=== PATIENT | female | born 1945 | race Two or more races ===

== ENCOUNTER 2024-10-23 10:32 | Inpatient (IN) | payer OTHER ==
[~2024-10-23] VITALS: Ht 154.9 cm; Wt 55.8 kg
[2024-10-23] MEDS ORDERED: FENOFIBRATE50 MG PO (11:58)
[2024-10-23] MEDS ORDERED: JARDIANCE10 MG PO (11:58)
[2024-10-23] MEDS ORDERED: RESTORIL30 M1 PO (11:58)
[2024-10-23] MEDS ORDERED: LIPITOR20 MG PO (11:58)
[2024-10-23 11:59] VITALS: BP 134/70
[2024-10-29] MEDS ORDERED: CEFAZOLIN SODIUM 1,000 MG VIAL ONE (07:57)
[2024-10-29] MEDS ORDERED: TRANEXAMIC ACID 100MG/1ML (1000MG) AMPUL IV ONE (07:58)
[2024-10-29] MEDS ORDERED: VANCOMYCIN HCL 1,000 MG VIAL ONE (10:18)
[2024-10-29] MEDS ORDERED: KETOROLAC TROMETHAMINE 60 MG VIAL IM ONE (10:18)
[2024-10-29] MEDS ORDERED: LIDOCAINE HCL 1%/EPINEPHRINE 20ML VIAL IJ ONE (10:18)
[2024-10-29] MEDS ORDERED: BUPIVACAINE HCL/MPF 0.5% 30ML VIAL ONE (10:18)
[2024-10-29] MEDS ORDERED: OxyCODONE HCL 5 MG TABLET (ROXICODONE) PO PRN (10:30)
[2024-10-29] MEDS ORDERED: ONDANSETRON HCL 2 MG/ML VIAL IV PRN (10:30)
[2024-10-29] MEDS ORDERED: MORPHINE SULFATE 4 MG/ML CARTRIDGE IV SCH (12:00)
[2024-10-29] MEDS ORDERED: CEFAZOLIN SODIUM 1,000 MG VIAL IV SCH (12:00)
[2024-10-29] MEDS ORDERED: MORPHINE SULFATE 4 MG/ML CARTRIDGE IV ONE (12:18)
[2024-10-29] MEDS ORDERED: ACETAMINOPHEN 325 MG TABLET PO PRN (12:30)
[2024-10-29] MEDS ORDERED: ORPHENADRINE CITRATE 100 MG TABLET PO SCH (21:00)
[2024-10-29] MEDS ORDERED: GABAPENTIN 100 MG CAPSULE PO SCH (21:00)
[2024-10-29] MEDS ORDERED: DEXTROSE 50 % IN WATER 0.5 G/ML VIAL IV PRN (22:45)
[2024-10-29] MEDS ORDERED: INSULIN LISPRO 1,000 UNIT/10 ML UNITS SUBCUTANEO PRN (22:45)
[2024-10-30 01:23] VITALS: BP 106/54; O2SAT 100
[2024-10-30 08:17] LABS: BASO % 0.5 % (0.1-1.2); EOS # 0.16 (0.04-0.54); EOS % 2.1 % (0.7-7.0); HEMATOCRIT 36.3 % (34.1-44.9); HEMOGLOBIN 12.3 g/dL (11.2-15.7); LYMPH # 1.73 (1.18-3.74); LYMPH % 22.9 % (19.3-53.1); MEAN CORPUSCULAR HEMOGLOBIN 32.2 pg (25.6-32.2); MONO # 0.63 (0.24-0.82); MONO % 8.4 % (4.7-12.5); NEUT # 4.96 (1.56-6.13); NEUT % 65.8 % (34.0-71.1); PLATELET COUNT 188 K/uL (163-369); RED BLOOD COUNT 3.82 M/uL (3.93-5.22); RED CELL DISTRIBUTION WIDTH 14.2 % (11.6-14.4)
[2024-10-30] MEDS ORDERED: ENOXAPARIN SODIUM 30 MG/0.3 ML SYRINGE SUBCUTANEO SCH (09:00)
[2024-10-30 09:01] VITALS: BP 125/62; O2SAT 95
[2024-10-30 15:17] LABS: COVID-19 AG NEGATIVE (NEGATIVE)
[2024-10-30 16:31] VITALS: BP 133/64; O2SAT 95
[2024-10-30] MEDS ORDERED: IRON FUM,PS/FOLIC ACID/VITC/B3 1 CAP CAPSULE PO SCH (17:00)
[2024-10-30] MEDS ORDERED: Cyanocobalamin/Mecobalamin 1 TAB.SL SL SCH (17:00)
[2024-10-30] MEDS ORDERED: VITAMIN B COMPLEX 1 EACH PO SCH (17:00)
[2024-10-30] MEDS ORDERED: ATORVASTATIN CALCIUM 20 MG TABLET PO SCH (17:00)
[2024-10-30] MEDS ORDERED: TEMAZEPAM 15 MG CAPSULE PO SCH (21:00)
[2024-10-31 00:51] VITALS: BP 107/65; O2SAT 98
[2024-10-31 06:43] LABS: BASO % 0.2 % (0.1-1.2); EOS # 0.02 (0.04-0.54); EOS % 0.2 % (0.7-7.0); HEMOGLOBIN 11.9 g/dL (11.2-15.7); LYMPH # 1.48 (1.18-3.74); LYMPH % 18.2 % (19.3-53.1); MEAN CORPUSCULAR HEMOGLOBIN 31.9 pg (25.6-32.2); MONO # 0.44 (0.24-0.82); MONO % 5.4 % (4.7-12.5); NEUT # 6.13 (1.56-6.13); NEUT % 75.6 % (34.0-71.1); PLATELET COUNT 171 K/uL (163-369); RED BLOOD COUNT 3.73 M/uL (3.93-5.22); RED CELL DISTRIBUTION WIDTH 13.8 % (11.6-14.4)
[2024-10-31 07:30] VITALS: BP 122/65; O2SAT 97
[2024-10-31] MEDS ORDERED: GABAPENTIN100 MG PO (12:49)
[2024-10-31] MEDS ORDERED: NORFLEX100MG PO (12:49)
[2024-10-31] MEDS ORDERED: OXYCODONE HCL5 MG PO (12:50)
[2024-10-31] MEDS ORDERED: XARELTO10 MG PO (12:50)
[2024-10-31 16:43] VITALS: BP 111/66; O2SAT 96
== END 2024-10-31 17:50 | DRG 470 ==
LOC: O/R 10-29 06:31 → SURG 10-29 07:00 → SURH 10-29 13:31 → SURG 10-29 13:33
PROVIDERS: ADMIT Orthopaedic Surgery; ATTEND Orthopaedic Surgery
PROC: 0SRC0JZ Replacement of Right Knee Joint with Synthetic Substitute, Open Approach (ICD-10-PCS; principal; 2024-10-29 07:00)
DX: M17.11 Unilateral primary osteoarthritis, right knee (principal); D62 Acute posthemorrhagic anemia; M85.661 Other cyst of bone, right lower leg; Z72.0 Tobacco use